=== PATIENT | female | born 1975 | race Caucasian/White ===

== ENCOUNTER 2018-05-28 09:00 | Outpatient (CLI) | payer OTHER ==
[~2018-05-28 09:00] MED LIST: CARAFATE1 G PO; FERROUS SULFATE PO; FOLIC ACID1 MG PO; NEXIUM 24HR20 MG PO; POLY119PG PO; SURFAK240 M1 PO; TORADOL30 MG IM; ZOFRAN
== END 2018-05-28 09:05 | disposition home or self-care (01) ==
LOC: EKG 09:00
DX: I10 Essential (primary) hypertension (principal); E66.01 Morbid (severe) obesity due to excess calories

== ENCOUNTER 2018-06-01 14:30 | Inpatient (IN) | payer OTHER ==
[~2018-06-01] VITALS: Ht 167.6 cm; Wt 72.1 kg
== END 2018-06-06 16:11 | disposition home or self-care (01) | DRG 581 ==
LOC: SURG 14:30 → O/R 06-05 09:59 → SURG 06-05 14:30
PROVIDERS: Plastic Surgery
PROC: 0W0F0ZZ Alteration of Abdominal Wall, Open Approach (ICD-10-PCS; 2018-06-05)
PROC: 0H0V0ZZ Alteration of Bilateral Breast, Open Approach (ICD-10-PCS; principal; 2018-06-05 07:00)
DX: N62 Hypertrophy of breast (principal); M62.08 Separation of muscle (nontraumatic), other site; E88.1 Lipodystrophy, not elsewhere classified; E66.01 Morbid (severe) obesity due to excess calories; Z98.84 Bariatric surgery status

== ENCOUNTER 2024-10-26 12:15 | Inpatient (IN) | payer OTHER ==
[~2024-10-26] VITALS: Ht 170.2 cm; Wt 77.1 kg
[2024-10-26] MEDS ORDERED: NEXIUM 24HR20 M1 PO (13:53)
[2024-10-26 13:54] VITALS: BP 87/59
[2024-10-26 13:59] VITALS: BP 109/74
[2024-10-26 14:22] LABS: COVID-19 AG NEGATIVE (NEGATIVE)
[2024-10-26 15:19] LABS: RH POSITIVE
[2024-10-28 15:55] LABS: HEMOGLOBIN 10.5 g/dL (12.0-15.00); MEAN CELL VOLUME 85.2 fL (80.00-100.00); MEAN CORPUSCULAR HGB CONC 32.8 g/dl (32.0-36.0); PLATELET COUNT 264 K/uL (150-450); RED BLOOD COUNT 3.76 M/uL (4.00-6.00)
[2024-10-28 16:00] LABS: ALBUMIN 2.8 gm/dL (3.4-5.0); CALCIUM 7.7 mg/dL (8.5-10.1); CREATININE SERUM 0.45 mg/dL (0.55-1.02); GFR 149.35; PHOSPHOROUS 2.8 mg/dL (2.5-4.9); POTASSIUM 3.88 mEq/L (3.5-5.1); RED CELL DISTRIBUTION WIDTH 17.9 % (11.5-14.5)
[2024-10-28] MEDS ORDERED: CEFAZOLIN SODIUM 1,000 MG VIAL ONE (16:18)
[2024-10-28] MEDS ORDERED: METOCLOPRAMIDE HCL 5 MG/ML VIAL ONE (16:18)
[2024-10-28 16:50] VITALS: BP 87/59; O2SAT 98
[2024-10-28] MEDS ORDERED: METOCLOPRAMIDE HCL 5 MG/ML VIAL IV SCH (18:02)
[2024-10-28] MEDS ORDERED: METRONIDAZOLE/SODIUM CHLORIDE 100 ML IV SCH (18:03)
[2024-10-28] MEDS ORDERED: ACETAMINOPHEN 500 MG GEL..CAP PO SCH (18:04)
[2024-10-28] MEDS ORDERED: OxyCODONE HCL 5 MG TABLET (ROXICODONE) PO PRN (18:15)
[2024-10-28] MEDS ORDERED: RINGERS SOLUTION,LACTATED 1,000 ML IV SCH (18:15)
[2024-10-28] MEDS ORDERED: CELECOXIB 200 MG CAPSULE PO SCH (21:00)
[2024-10-28] MEDS ORDERED: CEFAZOLIN SODIUM 1,000 MG VIAL IV SCH (21:00)
[2024-10-28] MEDS ORDERED: FAMOTIDINE/PF 20 MG/2 ML VIAL IV SCH (21:00)
[2024-10-29] VITALS: BP 92/56
[2024-10-29 01:06] LABS: HEMATOCRIT 31.8 % (36.0-45.00); MEAN CELL VOLUME 85.2 fL (80.00-100.00); MEAN CORPUSCULAR HGB CONC 32.9 g/dl (32.0-36.0); PLATELET COUNT 274 K/uL (150-450); RED BLOOD COUNT 3.73 M/uL (4.00-6.00); RED CELL DISTRIBUTION WIDTH 17.1 % (11.5-14.5)
[2024-10-29 01:09] LABS: HEMOGLOBIN 10.4 g/dL (12.0-15.00); MEAN CORPUSCULAR HEMOGLOBIN 27.8 pg (27.00-32.0)
[2024-10-29 01:31] LABS: ALBUMIN 2.9 gm/dL (3.4-5.0); CALCIUM 7.8 mg/dL (8.5-10.1); GFR 103.18; PHOSPHOROUS 2.8 mg/dL (2.5-4.9); POTASSIUM 4.13 mEq/L (3.5-5.1)
[2024-10-29 01:35] LABS: CREATININE SERUM 0.62 mg/dL (0.55-1.02)
[2024-10-29] MEDS ORDERED: TRAMADOL HCL 50 MG TABLET PO SCH (08:00)
[2024-10-29 08:54] VITALS: BP 96/60
[2024-10-29] MEDS ORDERED: ENOXAPARIN SODIUM 40 MG/0.4 ML SYRINGE SUBCUTANEO SCH (09:00)
== END 2024-10-29 11:10 | disposition home or self-care (01) | DRG 743 ==
LOC: OB/GYN 10-28 05:17 → O/R 10-28 05:17 → SURH 10-28 07:00 → OB/GYN 10-28 14:29
PROVIDERS: Obstetrics & Gynecology; ADMIT Obstetrics & Gynecology Gynecologic Oncology; ATTEND Obstetrics & Gynecology Gynecologic Oncology
PROC: 0UT94ZZ Resection of Uterus, Percutaneous Endoscopic Approach (ICD-10-PCS; principal; 2024-10-28)
PROC: 0UT74ZZ Resection of Bilateral Fallopian Tubes, Percutaneous Endoscopic Approach (ICD-10-PCS; 2024-10-28)
PROC: 0DNW4ZZ Release Peritoneum, Percutaneous Endoscopic Approach (ICD-10-PCS; 2024-10-28)
PROC: 8E0W4CZ Robotic Assisted Procedure of Trunk Region, Percutaneous Endoscopic Approach (ICD-10-PCS; 2024-10-28)
PROC: 0DNN4ZZ Release Sigmoid Colon, Percutaneous Endoscopic Approach (ICD-10-PCS; 2024-10-28)
DX: D25.1 Intramural leiomyoma of uterus (principal); D25.2 Subserosal leiomyoma of uterus; N72 Inflammatory disease of cervix uteri; K66.0 Peritoneal adhesions (postprocedural) (postinfection)
CPT/HCPCS: 58573; 44180; S2900